=== PATIENT | female | born 1965 | race Caucasian/White ===

== ENCOUNTER 2018-10-24 23:46 | Emergency (ER) | payer MEDICAID ==
[2018-10-24 23:55] VITALS: O2SAT 100
[2018-10-25] MEDS ORDERED: Sodium Chloride 0.9% 1,000 ML IV STA ×2 (00:18→01:44)
[2018-10-25] MEDS ORDERED: Insulin Regular 100 units/ml IVP STA (00:18)
--- NOTE | 2018-10-25 00:36 | ED PDOC ---
HPI: Psych/Substance Abuse Time Seen by Provider: 10/24/18 23:56 Chief Complaint (Nursing): Alcohol Ingestion Chief Complaint (Provider): Suicidal Ideaiton History Per: Patient Associated Symptoms: Suicidal Thoughts Additional Complaint(s): 53 y/o female states that she was kicked out of the house today by her daughter. Patient reports she attempted to go to her aunt's house but she got lost on the way and felt very sad. She found a security police and informed the officer that she wanted to kill herself. Patient reports history of previous suicidal attempts; her last one was 15 years ago. Patient having a suicidal plan at this time. Patient also states she is not compliant with her medication since yesterday because she has no way to get to the pharmacy and get refills. Denies chest pain and shortness of breath contrary to triage note. Past Medical History Reviewed: Historical Data, Nursing Documentation, Vital Signs Vital Signs: Last Vital Signs Temp 98.2 F 10/24/18 23:53 Pulse 106 H 10/24/18 23:53 Resp 16 10/24/18 23:53 BP 124/86 10/24/18 23:53 Pulse Ox 100 10/24/18 23:53 - Family History Family History: States: Unknown Family Hx - Home Medications Home Medications: Ambulatory Orders Medication Instructions Recorded Aspirin 03/21/16 Irbesartan 03/21/16 MetFORMIN 03/21/16 Metoprolol 03/21/16 Simvastatin 03/21/16 Ultram 03/21/16 Unknown Seizure Med 03/21/16 - Allergies Allergies/Adverse Reactions: Allergies Allergy/AdvReac Type Severity Reaction Status Date / Time No Known Allergies Allergy Verified 03/21/16 10:17 Review of Systems ROS Statement: Except As Marked, All Systems Reviewed And Found Negative Cardiovascular: Negative for: Chest Pain Respiratory: Negative for: Shortness of Breath Psych: Positive for: Suicidal ideation Physical Exam - Reviewed Nursing Documentation Reviewed: Yes Vital Signs Reviewed: Yes - Physical Exam Appears: Positive for: Well, Non-toxic, No Acute Distress Head Exam: Positive for: ATRAUMATIC, NORMAL INSPECTION, NORMOCEPHALIC Skin: Positive for: Normal Color, Warm, DRY Eye Exam: Positive for: EOMI, Normal appearance, PERRL ENT: Positive for: Normal ENT Inspection Neck: Positive for: Normal, Painless ROM Cardiovascular/Chest: Positive for: Regular Rate, Rhythm. Negative for: Murmur Respiratory: Positive for: Normal Breath Sounds. Negative for: Respiratory Distress Gastrointestinal/Abdominal: Positive for: Normal Exam, Soft. Negative for: Tenderness Back: Positive for: Normal Inspection Extremity: Positive for: Normal ROM. Negative for: Pedal Edema, Deformity Neurologic/Psych: Positive for: Alert, Oriented, Mood/Affect (patient is crying but easily consolable). Negative for: Motor/Sensory Deficits - Laboratory Results Result Diagrams: 10/25/18 00:39 10/25/18 01:52 - ECG ECG: Positive for: Interpreted By Me ECG Rhythm: Positive for: Sinus Rhythm. Negative for: ST/T Changes Rate: 97 O2 Sat by Pulse Oximetry: 100 (RA) Pulse Ox Interpretation: Normal - Radiology X-Ray: Interpreted by Me (CXR) X-Ray Interpretation: No Acute Disease Medical Decision Making Medical Decision Making: Time: 00:18 Impression: suicidal ideation Intial Plan: Labs Crisis evaluation CXR Insulin 6 units IV Fluids 1:1 Observation UA FSBS: [id number] 0040 Pt. requesting her phone and attempting to leave ED. Informed that she cannot have phone at this time. Pt. pulled out her IV and attempted to leave ED. Pt. is still suicidal. Despite multiple attempts to calm and reason with patient she refused to have IV in. Due to elevated FSBS IV bolus required. Ativan 2mg IM ordered. Restraints ordered. 0140 Case and labs reviewed with Dr. Steen who recommends a repeat CMP ot check for improving gap. Additional IV NS fluids ordered. 0540 Pt. evaluated by Lisa BERMUDEZ who spoke with Dr. Richter and cleared pt. for discharge. Gait steady, unassisted. No slurred speech. Offers no complaints. Scribe Attestation: Documented by David Griffin acting as a scribe for Daniel Parkinson PA-C. Provider Scribe Attestation: All medical record entries made by the Scribe were at my direction and personally dictated by me. I have reviewed the chart and agree that the record accurately reflects my personal performance of the history, physical exam, medical decision making, and the department course for this patient. I have also personally directed, reviewed, and agree with the discharge instructions and disposition. Disposition - Clinical Impression Clinical Impression: Alcohol-induced mood disorder - Patient ED Disposition Is Patient to be Admitted: No - Disposition Disposition: Routine/Home Disposition Time: 05:50 Condition: IMPROVED Additional Instructions: ALEJA WEBER, thank you for letting us take care of you today. Your provider was Cathie Steen MD and you were treated for ETOH,SOB. The emergency medical care you received today was directed at your acute symptoms. If you were prescribed any medication, please fill it and take as directed. It may take several days for your symptoms to resolve. Return to the Emergency Department if your symptoms worsen, do not improve, or if you have any other problems. Please contact your doctor or call one of the physicians/clinics you have been referred to that are listed on the Patient Visit Information form that is included in your discharge packet. Bring any paperwork you were given at discharge with you along with any medications you are taking to your follow up visit. Our treatment cannot replace ongoing medical care by a primary care provider outside of the emergency department. Thank you for allowing the [facility] team to be part of your care today. If you had an X-Ray or CT scan: A Radiologist will review the ED reading if any change in treatment is needed we will contact you. If you had a blood, urine, or wound culture: It will take several days for the results, if any change in treatment is needed we will contact you. If you had an STI test: It will take 48 hours for the results. Please call after 1 week if you have not heard back. Instructions: Alcohol Use - When Is Drinking a Problem?, Alcohol Abuse and Alcoholism (DC) Forms: [employer] (Welsh)
[2018-10-25 00:50] LABS: ALB/GLOB RATIO 1.1 (1.0-2.1); ALBUMIN 4.3 g/dL (3.5-5.0); ALT/SGPT 30 U/L (9-52); AST/SGOT 32 U/L (14-36); BLOOD UREA NITROGEN 12 mg/dl (7-17); CALCIUM 8.3 mg/dL (8.4-10.2); GFR NON-AFRICAN AMERICAN > 60
[2018-10-25 00:55] LABS: BASO # 0.1 K/uL (0.0-0.2); BASO % 1.1 % (0.0-2.0); EOS # 0.1 K/uL (0.0-0.7); HEMOGLOBIN 10.8 g/dL (12.0-16.0); LYMPH # 3.6 K/uL (1.0-4.3); LYMPH % 65.5 % (20.0-40.0); MEAN CELL VOLUME 76.6 fl (81.0-99.0); MEAN CORPUSCULAR HEMOGLOBIN 25.5 pg (27.0-31.0); MEAN CORPUSCULAR HGB CONC 33.3 g/dL (33.0-37.0); MEAN PLATELET VOLUME 8.5 fl (7.2-11.7); MONO # 0.3 K/uL (0.0-0.8); MONO % 5.6 % (0.0-10.0); NEUT # 1.5 K/uL (1.8-7.0); NEUT % 26.8 % (50.0-75.0); NRBC % 0.1 % (0.0-0.0); RBC 4.24 Mil/uL (3.80-5.20); RED CELL DISTRIBUTION WIDTH 19.4 % (11.5-14.5); WHITE BLOOD COUNT 5.5 K/uL (4.8-10.8)
[2018-10-25 01:17] LABS: SQUAMOUS EPITHIAL 2 /hpf (0-5); URINE BACTERIA RARE (<OCC); URINE BILIRUBIN NEGATIVE (NEGATIVE); URINE BLOOD NEGATIVE (NEGATIVE); URINE CLARITY SLIGHTY-CLOUDY (Clear); URINE COLOR YELLOW (YELLOW); URINE GLUCOSE (UA) >=500 mg/dL (NEGATIVE); URINE LEUKOCYTE ESTERASE NEG Leu/uL (Negative); URINE PROTEIN 30 mg/dL (NEGATIVE); URINE UROBILINOGEN 0.2-1.0 mg/dL (0.2-1.0)
[2018-10-25 01:38] LABS: BARBITURATES, UR NEGATIVE (NEGATIVE); BENZODIAZEPINES, UR NEGATIVE (NEGATIVE); OPIATES, UR NEGATIVE (NEGATIVE); PHENCYCLIDINE, UR NEGATIVE (NEGATIVE)
[2018-10-25 02:05] VITALS: TEMP 98
[2018-10-25 03:09] LABS: ALB/GLOB RATIO 1.1 (1.0-2.1); ALBUMIN 3.7 g/dL (3.5-5.0); ALT/SGPT 27 U/L (9-52); AST/SGOT 30 U/L (14-36); BLOOD UREA NITROGEN 11 mg/dl (7-17); CALCIUM 7.5 mg/dL (8.4-10.2); GFR NON-AFRICAN AMERICAN > 60
[2018-10-25 06:02] VITALS: PULSE 97
[2018-10-25 06:06] VITALS: BP 148/80; RESP 14
--- NOTE | 2018-10-25 09:02 | CARD ---
APPROVED REPORT Date of service: 10/24/2018 EKG Measurement Heart [id number] <Conclusion> Normal sinus rhythm Normal ECG
--- NOTE | 2018-10-25 10:01 | RAD ---
Date of service: 10/25/2018 HISTORY: clearance COMPARISON: No prior. FINDINGS: LUNGS: The lungs are well inflated and clear. PLEURA: No pleural effusions or pneumothorax. CARDIOVASCULAR: The heart is normal in size. No aortic atherosclerotic calcifications present. OSSEOUS STRUCTURES: Within normal limits for the patient's age. VISUALIZED UPPER ABDOMEN: Normal. OTHER FINDINGS: None. IMPRESSION: No active pulmonary disease.
== END 2018-10-25 06:13 | disposition home or self-care (01) ==
LOC: H.ER 23:46
DX: F10.94 Alcohol use, unspecified with alcohol-induced mood disorder (principal)
CPT/HCPCS: 71045; 80053; 80320; 80324; 80345; 80346; 80349; 80353; 80358; 80361; 81003; 82948; 83992; 85025; 93005; 96361; 96372; 96374; 99285; J2060; J7030